=== PATIENT | female | born 1950 | race Two or more races ===

== ENCOUNTER 2024-09-18 08:25 | Outpatient (CLI) | payer OTHER ==
[2024-09-18 10:00] LABS: HEMATOCRIT 37.2 % (36.0-45.00); HEMOGLOBIN 12.1 g/dL (12.0-15.00); MEAN CELL VOLUME 91.5 fL (80.00-100.00); MEAN CORPUSCULAR HEMOGLOBIN 29.9 pg (27.00-32.0); MEAN CORPUSCULAR HGB CONC 32.7 g/dl (32.0-36.0); PLATELET COUNT 132 K/uL (150-450); RED BLOOD COUNT 4.06 M/uL (4.00-6.00); RED CELL DISTRIBUTION WIDTH 14.4 % (11.5-14.5)
[2024-09-18 10:33] LABS: ALBUMIN 3.8 gm/dL (3.4-5.0); BILIRUBIN TOTAL 0.64 mg/dL (0.3-1.2); CREATININE SERUM 0.84 mg/dL (0.55-1.02); FERRITIN 176.4 NG/ML (8-252); GFR 65.92; GLOBULINA 4.2 G/DL (2.4-3.5); POTASSIUM 4.93 mEq/L (3.5-5.1)
[2024-09-18 11:04] LABS: FOLIC ACID > 20.00 ng/ml (4.78-20)
[2024-09-18 13:39] LABS: MANUAL PLATELET COUNT 224
[2024-09-18 13:40] LABS: PLATELET ESTIMATE NORMAL (NORMAL)
[2024-09-20 09:05] LABS: COMPLEMENT C3 140 mg/dL (82-167); COMPLEMENT C4 26 mg/dL (12-38); TRANSFERIN 284 mg/dL (192-364)
[2024-09-20 13:05] LABS: ANTI JO 1 < 0.2 AI (0.0-0.9); ANTI SCLERODERMA 70 < 0.2 AI (0.0-0.9); DNA AB DOUBLE STRABDED 1 IU/mL (0-9); rnp 0.4 AI (0.0-0.9); sjogrens ssa 6.1 AI (0.0-0.9); sjogrens ssb 3.2 AI (0.0-0.9); smith ab < 0.2 AI (0.0-0.9)
[2024-09-20 15:09] LABS: CYCLIC CITRULLINE PEPTIDE 34 units (0-19)
== END 2024-09-18 08:36 | disposition home or self-care (01) ==
LOC: LAB 08:25
PROVIDERS: ATTEND Internal Medicine Hematology & Oncology
DX: D69.6 Thrombocytopenia, unspecified (principal); I10 Essential (primary) hypertension; E03.8 Other specified hypothyroidism; D50.8 Other iron deficiency anemias; R79.9 Abnormal finding of blood chemistry, unspecified; R74.02 Elevation of levels of lactic acid dehydrogenase [LDH]; K76.89 Other specified diseases of liver; M32.9 Systemic lupus erythematosus, unspecified; M06.9 Rheumatoid arthritis, unspecified; M35.89 Other specified systemic involvement of connective tissue; K74.3 Primary biliary cirrhosis; D51.1 Vitamin B12 deficiency anemia due to selective vitamin B12 malabsorption with proteinuria; D51.0 Vitamin B12 deficiency anemia due to intrinsic factor deficiency; M34.81 Systemic sclerosis with lung involvement; E06.3 Autoimmune thyroiditis; M05.9 Rheumatoid arthritis with rheumatoid factor, unspecified

== ENCOUNTER 2024-12-27 09:13 | Outpatient (CLI) | payer OTHER | END 2024-12-27 09:15 | disposition home or self-care (01) | LOC: SONOGRAMA 09:13 | PROVIDERS: ATTEND Pathology Anatomic Pathology | DX: E03.8 Other specified hypothyroidism (principal) ==